=== PATIENT | male | born 1995 | race Caucasian/White ===

== ENCOUNTER 2017-06-13 11:04 | Inpatient (IN) ==
[2017-06-13 11:40] LABS: Basophils # 0.1 K/mcL (0.0-0.2); Basophils % 0.7 %; Eosinophils # 0.2 K/mcL (0.0-0.6); Eosinophils % 3.5 %; Hematocrit 47.6 % (37.5-50.1); Hemoglobin 15.5 g/dL (12.9-16.9); Immature Granulocytes % 0.4 % (0-4); Lymphocytes # 2.2 K/mcL (0.6-4.6); Lymphocytes % 31.5 %; Mean Corpuscular HGB Conc 32.6 g/dL (31.6-35.5); Mean Corpuscular Hemoglobin 26.7 pg (28.0-33.3); Mean Corpuscular Volume 81.9 fL (83.0-100.0); Mean Platelet Volume 10.4 fL (9.4-12.4); Monocytes # 0.5 K/mcL (0.0-1.3); Monocytes % 6.9 %; Neutrophils # 3.9 K/mcL (1.6-8.9); Platelet Count 235 K/mcL (140-400); Red Blood Count 5.81 M/mcL (4.19-5.50)
[2017-06-13 11:41] LABS: Bilirubin,Urine Negative (Negative); Blood,Urine Negative (Negative); Clarity,Urine Cloudy (Clear); Color,Urine Yellow (Yellow); Glucose,Urine (UA) Normal (Normal); Ketones,Urine Negative (Negative); Leukocyte Esterase,Urine Moderate (Negative); Nitrite,Urine Negative (Negative); PH,Urine 6.5 pH Units (5.0-8.0); Protein,Urine 30 mg/dL (Neg-Trace); Specific Gravity,Urine > 1.030 (1.010-1.025); Urobilinogen,Urine Normal (Normal)
[2017-06-13 11:42] LABS: Bacteria,Urine None Seen per hpf (None-Few); Hyaline Casts,Urine Moderate per lpf (None-Few); Squamous Epithelial Cell,Urine Few per lpf (None-Few); WBC,Urine TNTC per hpf (0-3)
[2017-06-13 11:47] LABS: Amphetamine Screen,Urine Negative ng/mL (Cutoff=1000); Barbiturate Screen,Urine Negative ng/mL (Cutoff=200); Benzodiazepines Screen,Urine Negative ng/mL (Cutoff=200); Cannabinoid Screen,Urine Negative ng/mL (Cutoff = 50); Cocaine Screen,Urine Negative ng/mL (Cutoff= 300); Opiate Screen,Urine Negative ng/mL (Cutoff=300); Phencyclidine Screen,Urine Negative ng/mL (Cutoff=25)
[2017-06-13 11:49] LABS: Mucus,Urine Moderate (Few)
[2017-06-13 11:55] LABS: Alanine Aminotransferase 11 Units/L (0-55); Alkaline Phosphatase 81 Units/L (38-126); Aspartate Amino Transferase 14 Units/L (5-34); BUN/Creatinine Ratio 12 (6-26); Bilirubin,Direct 0.3 mg/dL (0.0-0.5); Bilirubin,Indirect 0.4 mg/dL (0.0-1.2); Bilirubin,Total 0.7 mg/dL (0.2-1.2); Blood Urea Nitrogen 10 mg/dL (8-26); Calcium 9.4 mg/dL (8.6-10.8); Carbon Dioxide 29 mEq/L (19-29); Chloride 105 mEq/L (98-109); Glucose 95 mg/dL (70-99); Osmolality,Calculated 291 (280-300); Potassium 3.6 mEq/L (3.5-4.5); Sodium 141 mEq/L (136-145); eGFR For African Americans > 60; eGFR For Non-African Americans > 60
[2017-06-13 11:57] LABS: Acetaminophen < 1.0 mcg/mL (10-30); Ethanol < 10 mg/dL (0-10); Salicylate < 5.0 mg/dL (15-30)
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
[2017-06-13 12:16] LABS: Thyroid Stimulating Hormone 3.301 mcIU/mL (0.350-4.840)
[2017-06-13] MEDS ORDERED: Mag Hydrox/Al Hydrox/Simeth 30 ML UDC PO PRN (14:59)
[2017-06-13] MEDS ORDERED: MOM Conc 10 ML UD.LIQ PO PRN (14:59)
[2017-06-13] MEDS ORDERED: Ibuprofen 400 MG TABLET PO PRN (14:59)
[2017-06-13] MEDS ORDERED: *HR* LORazepam 2 MG/ML VIAL IM PRN (14:59)
[2017-06-13] MEDS ORDERED: hydrOXYzine pamoate 25 MG CAPSULE PO PRN (14:59)
[2017-06-13] MEDS ORDERED: *HR* LORazepam 1 MG TABLET PO PRN (14:59)
[2017-06-13] MEDS ORDERED: Haloperidol Lactate 5 MG/ML VIAL IM PRN (16:15)
[2017-06-13] MEDS: cephALEXin 500 MG CAPSULE PO SCH (20:55)
[2017-06-13] MEDS: traZODone 50 MG TABLET PO PRN (20:55)
[2017-06-14] MEDS: cephALEXin 500 MG CAPSULE PO SCH ×2 (09:55→21:03)
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
[2017-06-14] MEDS: Topiramate 25 MG TABLET PO SCH (21:02)
[2017-06-14] MEDS: traZODone 50 MG TABLET PO PRN (21:03)
[2017-06-15] MEDS: Topiramate 25 MG TABLET PO SCH ×2 (08:36→23:22)
[2017-06-15] MEDS: cephALEXin 500 MG CAPSULE PO SCH ×2 (08:36→23:21)
--- NOTE | 2017-06-15 12:12 | Psychiatry Progress Note ---
Date of Encounter: 06/15/17 Time of Encounter: 11:45 Subjective Interval history: The patient was seen in his room. Initially he was sleeping. He gradually woke up and began to talk about his symptoms. He does not know his medications were previous trials. He knows that he is on topiramate 50 mg twice a day. He did not report any significant side effects such as word finding difficulty or memory problems. He reports that he sleeps through most of the day. The patient has been able to identify Prozac to Zoloft and other medicines. When asked about specific request he said that he would prefer to take 2 medicines an antidepressant and a medicine for bipolar mood swings. He says that it would be bad if he went off on his mother. The patient reports no recent seizures but identifies stressors as causing seizures. He has seizure precautions with pillows up on his bed. He notes in the past these had 3 EEGs. His difficulty in recalling his treatment has been with the fact that much of the treatment recommendations were discussed with his parents when he was an adolescent. The records from [facility] for psychiatry were reviewed Review of Systems Constitutional: Denies: fever, chills, weakness, weight change Eyes: Denies: eye pain, vision change Ears, Nose, Throat: Denies: ear pain, throat pain, dental pain, hearing loss, congestion Cardiovascular: Denies: chest pain, palpitations, dyspnea on exertion Respiratory: Denies: cough, dyspnea, wheezes Gastrointestinal: Denies: abdominal pain, nausea, vomiting, diarrhea, constipation Neurological: Reports: confusion (after seizures). Denies: headache, weakness, numbness, memory loss Psychiatric: Reports: depression, abnormal sleep pattern, suicidal ideation, auditory hallucinations Objective: Exam Patient orientation: Yes Person, Yes Time, Yes Place, Yes Circumstance Level of alertness: Sedated Patient appearance: Appropriate Behavior: calm, guarded Psychomotor activity: Normal Eye contact: Minimal Contact Mood description: Depressed Affect description: constricted Speech pattern: Normal rhythm Speech volume: Soft/Quiet Thought process: Intact Thought content: Yes Intact Perceptual disturbances: Yes Auditory hallucinations (lthough he has reported halucinations since age 9 , he does not appear to attending to stimuli) Judgment: Limited Insight: Minimal Results - Vital Signs Vital Signs: Temp Pulse Resp BP Pulse Ox 97.9 F 80 16 98/55 96 06/15/17 08:32 06/15/17 08:32 06/15/17 08:32 06/15/17 08:32 06/13/17 14:14 - Drug Levels and Toxicology Drug Levels and Toxicology: dreug screen was negative Assessment and Plan (1) Bipolar disorder, current episode mixed, severe, without psychotic features Current visit: Yes Status: Acute Plan: Suicide Precautions per unit protocol, Encourage participation in unit milieu, Group Therapy Additional Plan: At this point I will look for a second generation antipsychotic that might be well tolerated to help with mood symptoms Risks, benefits, side effects, alternatives discussed w/pt: Yes Patient agreeable to treatment: Yes (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 Current visit: Yes Status: Acute Plan: Other Additional Plan: The patient will have seizure precautions while on the unit. Topiramate is been started 50 mg twice a day. The patient may benefit from an SSRI he has tolerated sertraline in the past we will use a lower dose even though this may lower seizure threshold. The possibility of generalized epilepsy exists but the patient has PNES Risks, benefits, side effects, alternatives discussed w/pt: Yes Patient agreeable to treatment: Yes (3) Borderline personality disorder Current visit: Yes Status: Acute Plan: Secure weapons, Family/Supportive other meeting Additional Plan: The patient had some efforts to scratch his wrist we will limit his access to utensils I am potential weapons. Ongoing psychotherapy is going to be important in the maintenance. A family meeting can be scheduled Risks, benefits, side effects, alternatives discussed w/pt: Yes Patient agreeable to treatment: Yes (4) Patient's noncompliance with other medical treatment and regimen Current visit: Yes Status: Acute Risks, benefits, side effects, alternatives discussed w/pt: Yes Patient agreeable to treatment: Yes Consult Discharge Plan - Plan Referrals: [facility] [Outside] - 06/22/17 11:00 am (The above appointment is with Feli العراقي for outpatient mental health counseling services. You will also see Dr. Addison for outpatient psychiatric assessment and medication management services on 06/23/2017 at 6:30 PM. The above appointments reflect first availability. You may contact the office regularly to check for cancellations that may allow you to be seen sooner.)
[2017-06-15] MEDS: Perphenazine 2 MG TABLET PO SCH (23:23)
[2017-06-16] MEDS: Topiramate 25 MG TABLET PO SCH ×2 (12:42→20:44)
[2017-06-16] MEDS: cephALEXin 500 MG CAPSULE PO SCH ×2 (12:42→20:44)
[2017-06-16] MEDS: Perphenazine 2 MG TABLET PO SCH ×3 (12:43→20:44)
--- NOTE | 2017-06-16 13:39 | Psychiatry Progress Note ---
Date of Encounter: 06/16/17 Time of Encounter: 13:35 Subjective Interval history: Patient has no income. His aunt lives on SSDI. He was thinking that his aunt Jazz[employer] could have power of contract attorney. He would like to be discharged sometime soon He is able to talk about the events of last night. This included going into restratints. he feels the medication is helpful. He was able to discuss PNES, or pseudoseizures. This is the reason for Topirmate zoloft, and psychotherapy Review of Systems Psychiatric: Reports: depression, abnormal sleep pattern, suicidal ideation, auditory hallucinations Objective: Exam Patient orientation: Yes Person, Yes Time, Yes Place, Yes Circumstance Level of alertness: Alert Patient appearance: Unkempt Behavior: nervous Psychomotor activity: Increased Eye contact: Maintains Eye Contact Mood description: Labile Affect description: inappropriate to situation Speech pattern: Normal rate, Normal rhythm Speech volume: Normal Thought process: Logical Thought content: Yes Suicidal ideation Judgment: Fair Insight: Partial Results - Vital Signs Vital Signs: Temp Pulse Resp BP Pulse Ox 98.2 F 94 16 116/81 96 06/16/17 09:00 06/16/17 09:00 06/16/17 09:00 06/16/17 09:00 06/13/17 14:14 Assessment and Plan (1) Bipolar disorder, current episode mixed, severe, without psychotic features Current visit: Yes Status: Acute Plan: Continue hospitalization, Suicide Precautions per unit protocol, Encourage participation in unit milieu, Monitor sleep, Monitor appetite Additional Plan: coping skills discussed Risks, benefits, side effects, alternatives discussed w/pt: Yes Patient agreeable to treatment: Yes (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 Current visit: Yes Status: Acute Plan: Continue hospitalization, Suicide Precautions per unit protocol Additional Plan: educaiton on PNES Risks, benefits, side effects, alternatives discussed w/pt: Yes Patient agreeable to treatment: Yes (3) Borderline personality disorder Current visit: Yes Status: Acute Plan: Group Therapy Risks, benefits, side effects, alternatives discussed w/pt : Yes Patient agreeable to treatment: Yes (4) Patient's noncompliance with other medical treatment and regimen Current visit: Yes Status: Acute Plan: Continue hospitalization, Close observation Risks, benefits, side effects, alternatives discussed w/pt: Yes Patient agreeable to treatment: Yes Consult Discharge Plan - Plan Referrals: [facility] [Outside] - 06/22/17 11:00 am (The above appointment is with Feli العراقي for outpatient mental health counseling services. You will also see Dr. Addison for outpatient psychiatric assessment and medication management services on 06/23/2017 at 6:30 PM. The above appointments reflect first availability. You may contact the office regularly to check for cancellations that may allow you to be seen sooner.)
[2017-06-17] MEDS: Topiramate 25 MG TABLET PO SCH (09:04)
[2017-06-17] MEDS: cephALEXin 500 MG CAPSULE PO SCH (09:04)
[2017-06-17] MEDS: Perphenazine 2 MG TABLET PO SCH (09:04)
--- NOTE | 2017-06-17 10:39 | Discharge Summary ---
Date of Encounter: 06/17/17 Time of Encounter: 10:39 Diagnosis - Discharge Diagnosis (1) Bipolar disorder, current episode mixed, severe, without psychotic features Priority: Primary Status: Acute (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 Status: Acute (3) Borderline personality disorder Status: Acute (4) Patient's noncompliance with other medical treatment and regimen Status: Acute (5) UTI (urinary tract infection) Status: Acute Comments: he will need to complete course of antibiotics Qualifiers: Urinary tract infection type: acute cystitis Hematuria presence: without hematuria Qualified Code(s): N30.00 - Acute cystitis without hematuria Medications - Discharge Medications Prescriptions: cephALEXin [Keflex] 500 mg PO BID 5 Days #10 capsule Perphenazine [Trilafon] 4 mg PO BID 60 Days #30 tablet Sertraline [Zoloft] 50 mg PO DAILY 30 Days #30 tablet Topiramate [Topamax] 50 mg PO BID 30 Days #60 tablet Perphenazine [Trilafon] 4 mg PO BID 60 Days #30 tablet 06/17/17 [Rx] Sertraline [Zoloft] 50 mg PO DAILY 30 Days #30 tablet 06/17/17 [Rx] Topiramate [Topamax] 50 mg PO BID 30 Days #60 tablet 06/17/17 [Rx] cephALEXin [Keflex] 500 mg PO BID 5 Days #10 capsule 06/17/17 [Rx] 3 Allergy/AdvReac Type Severity Reaction Status Date / Time Bee Pollen Allergy Hives Verified 04/30/17 21:56 Results Procedures and tests throughout hospitalization: Completed Microbiology Orders Category Date Time Status Culture,Urine [RM] Routine Lab 06/13/17 15:55 Completed Provider Date of admission: 06/13/17 14:40 Primary care physician: PCP NONE Discharging clinician: Je Hurst Assessment and Plan - Patient/Caregiver Discharge Instructions Activity: resume usual activities as tolerated Diet: regular diet - Follow up Plan Follow up with: Silvio Salazar [facility] [Outside] - 06/22/17 11:00 am (The above appointment is with Feli العراقي for outpatient mental health counseling services. You will also see Dr. Addison for outpatient psychiatric assessment and medication management services on 06/23/2017 at 6:30 PM. The above appointments reflect first availability. You may contact the office regularly to check for cancellations that may allow you to be seen sooner.) Functional capacity at discharge: independent ambulation Overall status at discharge: patient is back to baseline Disposition: Home, Self-Care Hospital Course Hospital course: Mr. Sunshine is a 21 year old male Patient was admitted from the ER. The patient has presented several ideation. He is followed by [facility] mental clinic where he receives counseling. He was unable to provide a complete history and has been noncompliant with treatment. The hospital records from [facility] psychiatry were reviewed. 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 He had been on topiramate 50 mg twice a day for possible seizures. He has no neurology follow- up locally. Given the risk of possible seizures he was placed on sertraline 50 mg every morning which he previously tolerated and perphenazine 2 mg twice a day was added because the patient exhibited features of borderline personality. This included suicidal ideation and suicide attempts mood lability and interpersonal difficulties. He required restraints and when necessary medications during hospital stay. However prior to discharge the patient displayed a period of relative mood stability freedom from suicidal ideation and no attempts or gestures. The patient had requested to be transferred to [facility] for psychiatry but they would not accept lateral transfers as a general policies. But the patient felt that he could continue as an outpatient and requested discharge. The patient's aunt is his next of kin and she was contacted regarding the hospitalization and discharge planning. The patient tolerated the medications without significant side effects there is no evidence of EPS. New the patient had a urinary tract infection he did not complain of dysuria. He was treated with Keflex and his course of antibiotics will continue on an outpatient basis. The patient's noncompliance with regimen is of concern. He is stopped antidepressants antipsychotics and other medicines as they are "not helping him ". The patient was educated on the need for continuing medicines on the diagnoses listed and the need for outpatient therapy and counseling in addition to medication management. - Time Spent with Patient Total time spent providing and/or coordinating discharge services: Less than 30 minutes Quality - Multiple Antipsychotics Patient discharged on 2 or more antipsychotic medications: No Procedures - Procedures Procedures: Medication Management, Crisis Stabilization, Supportive Therapy, Group Therapy, Psychoeducational Therapy Mental Status Exam - Mental Status Exam Patient orientation: Yes Person, Yes Time, Yes Place Level of alertness: Alert Patient appearance: Appropriate, Well Groomed Behavior: calm, cooperative Psychomotor activity: Normal Eye contact: Maintains Eye Contact Mood description: Euthymic/stable Affect description: congruent with mood, full range Speech pattern: Normal rate, Normal rhythm, Normal tone Speech Volume: Normal Thought process: Linear, Goal Oriented Thought Content: No Suicidal ideation, No Homicidal ideation, No Overt delusions Perceptual Disturbances: No Auditory hallucinations, No Visual hallucinations Judgment: Fair Insight: Partial
[2017-06-17 11:19] VITALS: BP 100/58
== END 2017-06-17 13:20 | disposition home or self-care (01) | DRG 753 ==
LOC: EMEROO 11:04 → 1ANU 14:40
PROVIDERS: ADMIT Psychiatry & Neurology Forensic Psychiatry; ATTEND Psychiatry & Neurology Forensic Psychiatry

== ENCOUNTER 2017-08-28 20:56 | Inpatient (IN) ==
[2017-08-28 21:32] LABS: Basophils # 0.1 K/mcL (0.0-0.2); Basophils % 0.5 %; Eosinophils # 0.3 K/mcL (0.0-0.6); Eosinophils % 2.9 %; Hematocrit 47.7 % (37.5-50.1); Hemoglobin 15.8 g/dL (12.9-16.9); Immature Granulocytes % 0.4 % (0-4); Lymphocytes % 37.6 %; Mean Corpuscular HGB Conc 33.1 g/dL (31.6-35.5); Mean Corpuscular Hemoglobin 27.3 pg (28.0-33.3); Mean Corpuscular Volume 82.5 fL (83.0-100.0); Mean Platelet Volume 10.3 fL (9.4-12.4); Monocytes # 0.9 K/mcL (0.0-1.3); Monocytes % 8.7 %; Neutrophils # 5.3 K/mcL (1.6-8.9); Platelet Count 261 K/mcL (140-400); Red Blood Count 5.78 M/mcL (4.19-5.50); Red Cell Distribution Width 13.1 % (11.5-14.5); Segmented Neutrophils % 49.9 %
[2017-08-28 21:37] LABS: Bilirubin,Urine Negative (Negative); Blood,Urine Negative (Negative); Clarity,Urine Clear (Clear); Color,Urine Yellow (Yellow); Glucose,Urine (UA) Normal (Normal); Ketones,Urine Negative (Negative); Leukocyte Esterase,Urine Negative (Negative); Nitrite,Urine Negative (Negative); Protein,Urine Negative (Neg-Trace); Specific Gravity,Urine 1.026 (1.010-1.025); Urobilinogen,Urine Normal (Normal)
[2017-08-28 21:42] LABS: Amphetamine Screen,Urine Negative ng/mL (Cutoff=1000); Barbiturate Screen,Urine Negative ng/mL (Cutoff=200); Benzodiazepines Screen,Urine Negative ng/mL (Cutoff=200); Cannabinoid Screen,Urine Negative ng/mL (Cutoff = 50); Cocaine Screen,Urine Negative ng/mL (Cutoff= 300); Opiate Screen,Urine Negative ng/mL (Cutoff=300); Phencyclidine Screen,Urine Negative ng/mL (Cutoff=25)
[2017-08-28 21:48] LABS: Acetaminophen < 1.0 mcg/mL (10-30); BUN/Creatinine Ratio 17 (6-26); Blood Urea Nitrogen 13 mg/dL (6-20); Calcium 9.9 mg/dL (8.6-10.3); Carbon Dioxide 28 mEq/L (23-29); Chloride 99 mEq/L (98-107); Ethanol < 10 mg/dL (0-10); Glucose 90 mg/dL (70-105); Osmolality,Calculated 288 (280-300); Potassium 3.7 mEq/L (3.5-5.1); Salicylate < 5.0 mg/dL (15.0-30.0); Sodium 139 mEq/L (136-145); eGFR For African Americans > 60; eGFR For Non-African Americans > 60
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
[2017-08-28] MEDS ORDERED: Acetaminophen 325 MG TABLET PO ONE (22:37)
[2017-08-29] MEDS ORDERED: Haloperidol Lactate 5 MG/ML VIAL IM PRN (01:11)
[2017-08-29] MEDS ORDERED: MOM Conc 10 ML UD.LIQ PO PRN (01:11)
[2017-08-29] MEDS ORDERED: *HR* LORazepam 2 MG/ML VIAL IM PRN (01:11)
[2017-08-29] MEDS ORDERED: *HR* LORazepam 1 MG TABLET PO PRN (01:11)
[2017-08-29] MEDS ORDERED: Mag Hydrox/Al Hydrox/Simeth 30 ML UDC PO PRN (01:11)
[2017-08-29] MEDS: Acetaminophen 325 MG TABLET PO PRN ×2 (09:40→16:17)
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
--- NOTE | 2017-08-30 11:03 | Psychiatry Progress Note ---
Date of Encounter: 08/30/17 Time of Encounter: 10:00 Subjective Interval history: Attempted to see Tutu twice today for follow-up. Initially he did not want to get out of bed. During the second interview patient admits to continued depression and suicidal ideations. He states "I am still trying to come up with a plan." He is manipulative with staff but redirectable. Staff is encouraging patient to make more positive goals for himself. He does want to know about his length of stay and seems focused on this. He reports his plan at discharge is to return to boyfriend's house. Patient has reported to staff that he is "seeing shadows." However he does not appear to be responding to internal stimuli. Her sleep assessment patient slept over 6 hours last night. Patient reports he still has trouble initiating sleep. Review of Systems Constitutional: Denies: fever, chills, weakness, weight change Eyes: Denies: eye pain, vision change Ears, Nose, Throat: Denies: ear pain, throat pain, dental pain, hearing loss, congestion Cardiovascular: Denies: chest pain, palpitations, dyspnea on exertion Respiratory: Denies: cough, dyspnea, wheezes Gastrointestinal: Denies: abdominal pain, nausea, vomiting, diarrhea, constipation Musculoskeletal: Denies: joint swelling, joint pain Neurological: Denies: headache, weakness, numbness, memory loss Psychiatric: Reports: depression, anxiety, abnormal sleep pattern, suicidal ideation, visual hallucinations, difficulty concentrating, hopelessness, mood swings Objective: Exam Patient orientation: Yes Person, Yes Time, Yes Place Level of alertness: Alert Patient appearance: Unkempt Behavior: dramatic Psychomotor activity: Normal Eye contact: Minimal Contact Mood description: Depressed Affect description: full range, incongruent with mood Speech pattern: Normal rate, Normal rhythm, Normal tone Speech volume: Normal Thought process: Logical, Goal Oriented Thought content: Yes Suicidal ideation, No Homicidal ideation Perceptual disturbances: No Reacting to internal stimuli, Yes Visual hallucinations Judgment: Limited Insight: Minimal Results - Vital Signs Vital Signs: Temp Pulse Resp BP Pulse Ox 99 F 88 16 142/73 100 08/29/17 19:20 08/29/17 19:20 08/29/17 19:20 08/29/17 19:20 08/28/17 21:02 Assessment and Plan (1) Bipolar disorder Current visit: Yes Status: Acute Plan: Continue hospitalization, Close observation, Suicide Precautions per unit protocol, Encourage participation in unit milieu, Group Therapy, Monitor sleep, Monitor appetite Additional Plan: Continue to monitor sleep. We will avoid increasing sleep meds further at this time. Continue to monitor side effects of meds. Consider increasing Zoloft for improvement in anxiety and depression symptoms. Risks, benefits, side effects, alternatives discussed w/pt: Yes Patient agreeable to treatment: Yes Qualifiers: Active/Remission status: currently active Current bipolar episode type: depressed Current episode severity: severe Psychotic features: with psychotic features Qualified Code(s): F31.5 - Bipolar disorder, current episode depressed, severe, with psychotic features (2) PTSD (post-traumatic stress disorder) Current visit: Yes Status: Acute Plan: Continue hospitalization, Close observation, Suicide Precautions per unit protocol, Encourage participation in unit milieu, Group Therapy, Monitor sleep, Monitor appetite Additional Plan: Encourage group attendance. Increase Zoloft. Risks, benefits, side effects, alternatives discussed w/pt: Yes Patient agreeable to treatment: Yes (3) Borderline personality disorder Current visit: No Status: Acute Plan: Continue hospitalization, Close observation, Suicide Precautions per unit protocol, Encourage participation in unit milieu, Group Therapy, Monitor sleep, Monitor appetite Additional Plan: Encouraged positive coping strategies and goal setting. Risks, benefits, side effects, alternatives discussed w/pt: Yes Patient agreeable to treatment: Yes Consult Discharge Plan - Plan Referrals: Silvio Salazar [facility] [Outside] - 09/08/17 2:00 pm (The above appointment is with Feli العراقي for outpatient mental health counseling and case management services. You will also see Dr. Leiva on 09/22/2017 at 7:00 PM for outpatient psychiatric assessment and medication management services.)
[2017-08-30] MEDS: hydrOXYzine pamoate 25 MG CAPSULE PO PRN (21:30)
[2017-08-30] MEDS: Acetaminophen 325 MG TABLET PO PRN (21:46)
[2017-08-31] MEDS: Acetaminophen 325 MG TABLET PO PRN (10:02)
[2017-08-31] MEDS: hydrOXYzine pamoate 25 MG CAPSULE PO PRN (13:30)
--- NOTE | 2017-08-31 14:04 | Psychiatry Progress Note ---
Date of Encounter: 08/31/17 Time of Encounter: 09:50 Subjective Interval history: Patient seen today for follow-up. He states he is still depressed and still having suicidal thoughts but does not have a plan right now. Patient reports he is not sleeping that well even though he is observed sleeping 5-6 hours per night. He reports some nightmares and feels that his sleep is not restful. He reports some mood swings and irritability. He plans to return to his boyfriend' s house on discharge. Patient then requested a place back on medication for seizures that was started at the [facility]. He later admits to staff that he has even been taking this medication regularly. Encouraged patient to work on coping strategies and participate in group activities. Patient has been more focused on certain members of the staff. Per staff report patient is trying to split staff and somewhat manipulating situations to his benefit. Review of Systems Psychiatric: Reports: depression, anxiety, abnormal sleep pattern, suicidal ideation, difficulty concentrating, hopelessness, mood swings. Denies: visual hallucinations Objective: Exam Patient orientation: Yes Person, Yes Time, Yes Place Level of alertness: Alert Patient appearance: Appropriate Behavior: dramatic Psychomotor activity: Normal Eye contact: Minimal Contact Mood description: Depressed Affect description: full range, incongruent with mood Speech pattern: Normal rate, Normal rhythm, Normal tone Speech volume: Normal Thought process: Intact, Logical, Goal Oriented Thought content: Yes Suicidal ideation Perceptual disturbances: No Auditory hallucinations, No Visual hallucinations Judgment: Limited Insight: Minimal Results - Vital Signs Vital Signs: Temp Pulse Resp BP Pulse Ox 97.8 F 91 18 96/59 100 08/31/17 09:00 08/31/17 09:00 08/31/17 09:00 08/31/17 09:00 08/28/17 21:02 Assessment and Plan (1) Bipolar disorder Current visit: Yes Status: Acute Plan: Continue hospitalization, Close observation, Suicide Precautions per unit protocol, Encourage participation in unit milieu, Group Therapy, Monitor sleep, Monitor appetite Additional Plan: We will increase Seroquel and Zoloft slightly. Continue to encourage patient to have appropriate boundaries with peers and staff and use appropriate and direct communication skills to get his needs met. Encourage group attendance. Risks, benefits, side effects, alternatives discussed w/pt: Yes Patient agreeable to treatment: Yes Qualifiers: Active/Remission status: currently active Current bipolar episode type: depressed Current episode severity: severe Psychotic features: with psychotic features Qualified Code(s): F31.5 - Bipolar disorder, current episode depressed, severe, with psychotic features (2) PTSD (post-traumatic stress disorder) Current visit: Yes Status: Acute Risks, benefits, side effects, alternatives discussed w/pt: Yes Patient agreeable to treatment: Yes (3) Borderline personality disorder Current visit: No Status: Acute Plan: Continue hospitalization, Close observation, Suicide Precautions per unit protocol, Encourage participation in unit milieu, Group Therapy, Monitor sleep, Monitor appetite Additional Plan: Monitor behavior closely. Encourage group and unit activity attendance. Encourage outpatient compliance with medications and treatment. Risks, benefits, side effects, alternatives discussed w/pt: Yes Patient agreeable to treatment: Yes Consult Discharge Plan - Plan [facility] pm (The above appointment is with Feli العراقي for outpatient mental health counseling and case management services. You will also see Dr. Leiva on 09/22/2017 at 7:00 PM for outpatient psychiatric assessment and medication management services.)
--- NOTE | 2017-09-01 10:02 | Psychiatry Progress Note ---
Date of Encounter: 09/01/17 Time of Encounter: 09:10 Subjective Interval history: Tutu is seen today for follow-up. He reports that he slept a little bit better last night. He was actually still in bed prior to the interview and did not want to get out of bed to come talk to this provider. He was eventually encouraged to get out of bed to discuss his mood. He states that he has been asleep this morning that yesterday he was still having intermittent suicidal ideation. Per staff, patient is reportedly trying to "come up with a plan on how to hurt himself here. Encouraged patient to try to make positive future goals. Encourage patient to attend and participate in group activities here on the unit. He denies auditory hallucinations today. We will begin to discuss discharge planning and appropriate placement upon discharge. Review of Systems Psychiatric: Reports: depression, anxiety, abnormal sleep pattern, suicidal ideation, difficulty concentrating, hopelessness, mood swings. Denies: auditory hallucinations, visual hallucinations Objective: Exam Patient orientation: Yes Person, Yes Time, Yes Place Level of alertness: Alert Patient appearance: Unkempt Behavior: dramatic Psychomotor activity: Normal Eye contact: Fleeting Contact Mood description: Depressed Affect description: full range, euthymic, incongruent with mood Speech pattern: Normal rate, Normal rhythm, Normal tone Speech volume: Normal Thought process: Intact, Logical, Goal Oriented Thought content: Yes Suicidal ideation, No Homicidal ideation Perceptual disturbances: No Auditory hallucinations, No Visual hallucinations Judgment: Limited Insight: Minimal Results - Vital Signs Vital Signs: Temp Pulse Resp BP Pulse Ox 98 F 99 16 95/68 100 09/01/17 09:00 09/01/17 09:00 09/01/17 09:00 09/01/17 09:00 08/28/17 21:02 Assessment and Plan (1) Bipolar disorder Current visit: Yes Status: Acute Plan: Continue hospitalization, Close observation, Suicide Precautions per unit protocol, Encourage participation in unit milieu, Group Therapy, Monitor sleep, Monitor appetite Additional Plan: Continue current medications. Increases were made yesterday and patient does appear to be sleeping better. Risks, benefits, side effects, alternatives discussed w/pt: Yes Patient agreeable to treatment: Yes Qualifiers: Active/Remission status: currently active Current bipolar episode type: depressed Current episode severity: severe Psychotic features: with psychotic features Qualified Code(s): F31.5 - Bipolar disorder, current episode depressed, severe, with psychotic features (2) PTSD (post-traumatic stress disorder) Current visit: Yes Status: Acute Risks, benefits, side effects, alternatives discussed w/pt: Yes Patient agreeable to treatment: Yes (3) Borderline personality disorder Current visit: No Status: Acute Risks, benefits, side effects, alternatives discussed w/pt: Yes Patient agreeable to treatment: Yes Consult Discharge Plan - Plan Referrals: [facility] [Outside] - 09/08/17 2:00 pm (The above appointment is with Feli العراقي for outpatient mental health counseling and case management services. You will also see Dr. Leiva on 09/22/2017 at 7:00 PM for outpatient psychiatric assessment and medication management services.)
[2017-09-01] MEDS ORDERED: Nicotine 2 MG GUM BC PRN (21:31)
--- NOTE | 2017-09-02 10:08 | Psychiatry Progress Note ---
Date of Encounter: 09/02/17 Time of Encounter: 09:00 Subjective Interval history: Tutu is seen today for follow-up. He continues to endorse suicidal ideations. He is not sure what his plan will be. Patient is a little bit groggy this morning and is agreeable to try to decrease the Seroquel slightly. He denies auditory or visual hallucinations. He is starting to consider discharge in his discharge plan and is wondering about how much longer he will need to be admitted. We discussed that this is partially up to his mood symptoms and his suicidal thoughts. Patient verbalizes understanding. Encourage group attendance and discussed meaningful participation in groups. Review of Systems Psychiatric: Reports: depression, anxiety, suicidal ideation, difficulty concentrating, hopelessness, mood swings. Denies: abnormal sleep pattern, auditory hallucinations, visual hallucinations Objective: Exam Patient orientation: Yes Person, Yes Time, Yes Place Level of alertness: Alert Patient appearance: Unkempt Behavior: dramatic Psychomotor activity: Normal Eye contact: Maintains Eye Contact Mood description: Depressed Affect description: other (Sleepy) Speech pattern: Normal rate, Normal rhythm, Normal tone Speech volume: Normal Thought content: Yes Suicidal ideation Perceptual disturbances: No Reacting to internal stimuli, No Auditory hallucinations, No Visual hallucinations Judgment: Limited Insight: Minimal Results - Vital Signs Vital Signs: Temp Pulse Resp BP Pulse Ox 98.2 F 103 16 100/70 100 09/02/17 09:00 09/02/17 09:00 09/02/17 09:00 09/02/17 09:00 08/28/17 21:02 Assessment and Plan (1) Bipolar disorder Current visit: Yes Status: Acute Plan: Continue hospitalization, Close observation, Suicide Precautions per unit protocol, Encourage participation in unit milieu, Group Therapy, Monitor sleep, Monitor appetite Additional Plan: Decrease nighttime quetiapine dose. Encourage meaningful participation in groups. Risks, benefits, side effects, alternatives discussed w/pt: Yes Patient agreeable to treatment: Yes Qualifiers: Active/Remission status: currently active Current bipolar episode type: depressed Current episode severity: severe Psychotic features: with psychotic features Qualified Code(s): F31.5 - Bipolar disorder, current episode depressed, severe, with psychotic features (2) PTSD (post-traumatic stress disorder) Current visit: Yes Status: Acute Risks, benefits, side effects, alternatives discussed w/pt: Yes Patient agreeable to treatment: Yes (3) Borderline personality disorder Current visit: No Status: Acute Risks, benefits, side effects, alternatives discussed w/pt: Yes Patient agreeable to treatment: Yes Consult Discharge Plan - Plan Referrals: [facility] [Outside] - 09/08/17 2:00 pm (The above appointment is with Feli العراقي for outpatient mental health counseling and case management services. You will also see Dr. Leiva on 09/22/2017 at 7:00 PM for outpatient psychiatric assessment and medication management services.)
[2017-09-02] MEDS: Nicotine 21 MG PATCH.TD24 TD SCH (14:53)
[2017-09-02] MEDS: Acetaminophen 325 MG TABLET PO PRN (23:23)
[2017-09-02] MEDS: hydrOXYzine pamoate 25 MG CAPSULE PO PRN (23:24)
[2017-09-03] MEDS: Nicotine 21 MG PATCH.TD24 TD SCH (09:56)
--- NOTE | 2017-09-03 10:31 | Psychiatry Progress Note ---
Date of Encounter: 09/03/17 Time of Encounter: 10:15 Subjective Interval history: The patient notes that he had difficulty falling asleep and tossed and turned overnight. Meanwhile observation reveals that he has greater than 6.5 hours and was sleeping in the morning. The patient is a 21-year-old white male with bipolar disorder and his discharge plan is to go back and live with his boyfriend. He claimed Texts sent to his cell phone From his ex-boyfriend caused suicide ideation. He reported seeing green men last night and this appears to be mood incongruent. He is not sure whether they were his imagination present or not. Patient reports hearing voices telling him to harm himself but has not tried to resist them. The patient reports that he had seizures on an outpatient basis but none recent , or for this unit. The patient has family history of completed suicide. The patient reports suicidal ideation while on the unit however when pressed for a plan where he might kill himself on the unit she could not specify 1. He agreed that he could say no to command halucianitons. The patient has been participating in groups and plans to continue in groups. He reports that in the relationship with his boyfriend he has not discussed why exactly he came to Hospital. Review of Systems Psychiatric: Reports: depression, anxiety, abnormal sleep pattern, suicidal ideation, auditory hallucinations, visual hallucinations, difficulty concentrating, hopelessness, mood swings Objective: Exam Patient orientation: Yes Person, Yes Time, Yes Place Level of alertness: Sedated Patient appearance: Appropriate, Thin Behavior: guarded Psychomotor activity: Normal Eye contact: Minimal Contact Mood description: Depressed Affect description: congruent with mood Speech pattern: Normal rate Speech volume: Soft/Quiet Thought process: Linear, Goal Oriented Thought content: Yes Suicidal ideation Judgment: Limited Insight: Minimal (he does not appear to be attending to internal stimuli) Results - Vital Signs Vital Signs: Temp Pulse Resp BP Pulse Ox 98.4 F 99 16 95/62 100 09/03/17 09:00 09/03/17 09:00 09/03/17 09:00 09/03/17 09:00 08/28/17 21:02 - Drug Levels and Toxicology Drug Levels and Toxicology: Drug screen was negative Assessment and Plan (1) Bipolar disorder, current episode mixed, severe, without psychotic features Current visit: No Status: Acute Plan: Continue hospitalization, Close observation, Monitor sleep Risks, benefits, side effects, alternatives discussed w/pt: Yes Patient agreeable to treatment: Yes (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 Current visit: No Status: Acute Plan: Continue hospitalization, Close observation, Suicide Precautions per unit protocol (3) Borderline personality disorder Current visit: No Status: Acute Plan: Encourage participation in unit milieu, Group Therapy, Family/Supportive other meeting Risks, benefits, side effects, alternatives discussed w/pt: Yes Patient agreeable to treatment: Yes (4) Patient's noncompliance with other medical treatment and regimen Current visit: No Status: Acute Plan: Close observation, Monitor appetite Risks, benefits, side effects, alternatives discussed w/pt: Yes Patient agreeable to treatment: Yes Consult Discharge Plan - Plan Referrals: [facility] [Outside] - 09/08/17 2:00 pm (The above appointment is with Feli العراقي for outpatient mental health counseling and case management services. You will also see Dr. Leiva on 09/22/2017 at 7:00 PM for outpatient psychiatric assessment and medication management services.)
[2017-09-03] MEDS: Acetaminophen 325 MG TABLET PO PRN (21:04)
[2017-09-04] MEDS: Nicotine 21 MG PATCH.TD24 TD SCH (09:12)
--- NOTE | 2017-09-04 11:54 | Psychiatry Progress Note ---
Date of Encounter: 09/04/17 Time of Encounter: 11:45 Subjective Interval history: . The patient had presented to the nurses station within the past 24 hours with a plan to strangle himself with anything he could find on the unit. He made no attempt to kill himself but continued to voice suicidal ideation. Today he says he has not suicidal and not planning to strangle himself. The patient was also told that he may need to find a new place to live sometime after he returns home. The patient reports that he is the boyfriend was over visiting. When the boyfriend was talking to he did not seem to pay attention as well and the boyfriend thought that the patient was having a seizure. When asked about this the patient says that he did not lose control of bowel or bladder did not lose significant control of current consciousness but that he may have bit the left side of his tongue. The patient does have a piercing near that area as well. Patient is asked to go on the medicine Depakote. He says that his mother was on Depakote for grand mal seizures. The patient also has bipolar disorder diagnosed. In the past the patient was treated with topiramate for his seizure disorder but there may did not work to prevent seizures. This may be related to the fact that he has P SKINNY Patient was told to follow up with the neurologist but he was relocating and never did. The patient says that he has a problem with the left knee. He would like to have a knee brace from home to help him to stabilize the knee. I told him that I would relay his concerns with the staff. So I am not sure that he can wear a knee brace on the unit at this time. The patient does not have the cushions up for seizure disorder because he is not felt to have primary epilepsy Review of Systems Psychiatric: Reports: depression, anxiety, abnormal sleep pattern, suicidal ideation, auditory hallucinations, visual hallucinations, difficulty concentrating, hopelessness, mood swings Objective: Exam Patient orientation: Yes Person, Yes Time, Yes Place, Yes Circumstance Level of alertness: Alert Patient appearance: Appropriate, Thin Behavior: anxious, impulsive, talkative Psychomotor activity: Increased Eye contact: Maintains Eye Contact Mood description: Depressed, Anxious Affect description: labile, anxious Speech pattern: Normal rate, Normal rhythm Speech volume: Normal Thought process: Goal Oriented Thought content: Yes Suicidal ideation, Yes Somatic delusion Perceptual disturbances: Yes Auditory hallucinations, Yes Visual hallucinations Judgment: Limited Insight: Minimal (The patient said that he saw green men and that they waved to. 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 Current visit: No Status: Acute Plan: Continue hospitalization, Close observation, Encourage participation in unit milieu Risks, benefits, side effects, alternatives discussed w/pt: Yes Patient agreeable to treatment: Yes (3) Borderline personality disorder Current visit: No Status: Acute Plan: Continue hospitalization, Close observation, Encourage participation in unit milieu, Family/Supportive other meeting Risks, benefits, side effects, alternatives discussed w/pt: Yes Patient agreeable to treatment: Yes (4) Patient's noncompliance with other medical treatment and regimen Current visit: No Status: Acute Plan: Continue hospitalization, Close observation, Encourage participation in unit milieu Risks, benefits, side effects, alternatives discussed w/pt: Yes Patient agreeable to treatment: Yes Consult Discharge Plan - Plan Referrals: [facility] [Outside] - 09/08/17 2:00 pm (The above appointment is with Feil العراقي for outpatient mental health counseling and case management services. You will also see Dr. Leiva on 09/22/2017 at 7:00 PM for outpatient psychiatric assessment and medication management services.)
[2017-09-04] MEDS ORDERED: Divalproex (24 HR) 500 MG TABLET PO SCH (21:00)
[2017-09-05] MEDS: Nicotine 21 MG PATCH.TD24 TD SCH (09:24)
--- NOTE | 2017-09-05 12:58 | Psychiatry Progress Note ---
Date of Encounter: 09/05/17 Time of Encounter: 12:40 Subjective Interval history: Mr. Sunshine is 21 yr old WM seen today , case d/w treatment team and as per them patient has made remarks that he wanted to strangle himself. States i do not want to be around my aunt and family and i will make easy on them by killing my self. states he does not have any plans right now but he wants to kill himself. i am not sleeping well and i need some sleeping medication, depression is same , does not feel getting better, anxious and shaky . i am hearing things but i can not make them out. denies side effects. pt at present is suicidal , and depress with hallucinations. will Review of Systems Psychiatric: Reports: depression, anxiety, abnormal sleep pattern, suicidal ideation, auditory hallucinations, visual hallucinations, difficulty concentrating, hopelessness, mood swings Objective: Exam Patient orientation: Yes Person, Yes Time, Yes Place Level of alertness: Alert Patient appearance: Appropriate Behavior: cooperative, anxious Psychomotor activity: Normal Eye contact: Maintains Eye Contact Mood description: Depressed, Anxious Affect description: congruent with mood Speech pattern: Slowed Speech volume: Normal Thought process: Logical Thought content: Yes Suicidal ideation, Yes Preoccupation Perceptual disturbances: Yes Auditory hallucinations Judgment: Poor Insight: Minimal Results - Vital Signs Vital Signs: Temp Pulse Resp BP Pulse Ox 98.8 F 93 16 136/74 100 09/04/17 19:50 09/04/17 19:50 09/04/17 19:50 09/04/17 19:50 08/28/17 21:02 Assessment and Plan (1) Bipolar disorder Current visit: Yes Status: Acute Plan: Continue hospitalization, Close observation, Suicide Precautions per unit protocol, Encourage participation in unit milieu, Group Therapy, Monitor sleep, Monitor appetite Additional Plan: will increase depakote and zoloft , will monitor closely. Risks, benefits, side effects, alternatives discussed w/pt: Yes Patient agreeable to treatment: Yes Qualifiers: Active/Remission status: currently active Current bipolar episode type: depressed Current episode severity: severe Psychotic features: with psychotic features Qualified Code(s): F31.5 - Bipolar disorder, current episode depressed, severe, with psychotic features (2) Borderline personality disorder Current visit: No Status: Acute Plan: Continue hospitalization, Close observation, Suicide Precautions per unit protocol, Encourage participation in unit milieu, Group Therapy, Monitor sleep, Monitor appetite, Family/Supportive other meeting Risks, benefits, side effects, alternatives discussed w/pt: Yes Patient agreeable to treatment: Yes (3) PTSD (post-traumatic stress disorder) Current visit: Yes Status: Chronic Plan: Continue hospitalization, Close observation, Suicide Precautions per unit protocol, Encourage participation in unit milieu, Group Therapy, Monitor appetite, Family/Supportive other meeting Risks, benefits, side effects, alternatives discussed w/pt: Yes Patient agreeable to treatment: Yes Consult Discharge Plan - Plan Referrals: Silvio [facility] [Outside] - 09/08/17 2:00 pm (The above appointment is with Feli العراقي for outpatient mental health counseling and case management services. You will also see Dr. Leiva on 09/22/2017 at 7:00 PM for outpatient psychiatric assessment and medication management services.)
[2017-09-05] MEDS: Divalproex (12 HR) 500 MG TABLET PO SCH (21:27)
[2017-09-06] MEDS: Nicotine 21 MG PATCH.TD24 TD SCH (09:09)
--- NOTE | 2017-09-06 12:19 | Psychiatry Progress Note ---
Date of Encounter: 09/06/17 Time of Encounter: 12:00 Subjective Interval history: Patient seen today , case d/w staff and treatment team. he is stating i am feeling better and asking to be discharged today , as he is feeling better and not hallucinating and i asked him yesterday afternoon he was still depress and suicidal, states i used coping skills, states i am not suicidal. states my grand mothers is tomorrow and i want to go , he feels increase of medicine has helped him and feeling better. he is denying side effects. will get depakote level. Review of Systems Psychiatric: Reports: depression, anxiety, abnormal sleep pattern, suicidal ideation, auditory hallucinations, visual hallucinations, difficulty concentrating, hopelessness, mood swings Objective: Exam Patient orientation: Yes Person, Yes Time, Yes Place Level of alertness: Alert Patient appearance: Appropriate Behavior: calm, cooperative Psychomotor activity: Normal Eye contact: Maintains Eye Contact Mood description: Anxious Affect description: congruent with mood Speech pattern: Normal rate, Normal rhythm, Normal tone, Coherent Speech volume: Normal Thought process: Intact Thought content: Yes Intact, Yes Guilt Judgment: Fair Insight: Partial Results - Vital Signs Vital Signs: Temp Pulse Resp BP Pulse Ox 98 F 131 16 78/54 100 09/06/17 09:00 09/06/17 09:00 09/06/17 09:00 09/06/17 09:00 08/28/17 21:02 Assessment and Plan (1) Bipolar disorder Current visit: Yes Status: Acute Risks, benefits, side effects, alternatives discussed w/pt: Yes Patient agreeable to treatment: Yes Qualifiers: Active/Remission status: currently active Current bipolar episode type: depressed Current episode severity: severe Psychotic features: with psychotic features Qualified Code(s): F31.5 - Bipolar disorder, current episode depressed, severe, with psychotic features (2) Borderline personality disorder Current visit: No Status: Acute Risks, benefits, side effects, alternatives discussed w/pt: Yes Patient agreeable to treatment: Yes (3) PTSD (post-traumatic stress disorder) Current visit: Yes Status: Chronic Risks, benefits, side effects, alternatives discussed w/pt: Yes Patient agreeable to treatment: Yes Consult Discharge Plan - Plan Referrals: [facility] [Outside] - 09/08/17 2:00 pm (The above appointment is with Feli العراقي for outpatient mental health counseling and case management services. You will also see Dr. Leiva on 09/22/2017 at 7:00 PM for outpatient psychiatric assessment and medication management services.)
[2017-09-06] MEDS: Divalproex (12 HR) 500 MG TABLET PO SCH (20:55)
[2017-09-07] MEDS: Nicotine 21 MG PATCH.TD24 TD SCH (08:52)
[2017-09-07 08:57] VITALS: BP 104/70
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
== END 2017-09-07 11:50 | disposition home or self-care (01) | DRG 753 ==
LOC: EMEROO 20:56 → SUATTDRO 08-29 01:07 → 1ANU 08-29 01:07
PROVIDERS: ADMIT Psychiatry & Neurology Psychiatry; ATTEND Psychiatry & Neurology Psychiatry

== ENCOUNTER 2018-11-11 22:50 | Inpatient (IN) ==
--- NOTE | 2018-11-11 23:39 | Emergency Department Note ---
Disposition Clinical Impression: Suicidal ideation Suicidal behavior Qualifiers: Attempted self-injury: with attempted self-injury Qualified Code(s): T14.91XA - Suicide attempt, initial encounter Disposition: Admitted As Inpatient Psych HPI - General Chief Complaint: ED Psychiatric Symptoms Stated Complaint: 1A Eval Time Seen by Provider: 11/11/18 23:25 Source: patient Mode of arrival: ambulatory Limitations: no limitations Nursing Notes Reviewed: Yes Vital Signs Reviewed: Yes - History of Present Illness HPI Narrative: 22-year-old male with a history of for anxiety and depression, seizures, ADHD, bipolar presents with suicidal thought. Patient stated he ran out of antidepressant medication for a while. Patient felt depressed recently. He tried to kill himself by overdose. Patient took 5 tablets each of Depakote 500mg and Olanzapine 15 mg. Pt reported some dizziness. Pt complaint: suicidal ideation, feels depressed - Related Data Home Medications Medication Instructions Recorded Confirmed Benztropine [Cogentin] 1 mg PO HS 09/27/17 09/27/17 OLANZapine [Zyprexa] 15 mg PO HS 09/27/17 09/27/17 Previous Rx's Medication Instructions Recorded Divalproex (12 HR) [Depakote (12 1,000 mg PO HS #60 tablet.dr 09/07/17 HR)] Quetiapine Fumarate [Seroquel] 600 mg PO HS #60 tablet 09/07/17 Ondansetron ODT [Zofran ODT] 4 mg SL Q6HR PRN #7 tab.rapdis 01/11/18 Dicyclomine [Bentyl] 10 mg PO TID #12 capsule 09/30/18 Ondansetron ODT [Zofran ODT] 4 mg SL Q6HR #8 tab.rapdis 09/30/18 Allergies Allergy/AdvReac Type Severity Reaction Status Date / Time Bee Pollen Allergy Hives Verified 11/11/18 23:12 dairy Allergy Gastrointestinal Uncoded 11/11/18 23:12 Upset Constitutional: Denies: fever, chills Eyes: Denies: eye pain ENT ED: Denies: ear pain Cardiovascular: Denies: chest pain Respiratory: Denies: cough Gastrointestinal: Denies: abdominal pain Genitourinary: Denies: urgency Musculoskeletal: Denies: back pain Integumentary: Denies: rash Neurological: Denies: headache Psychiatric: Reports: depression, suicidal thoughts. Denies: anxiety Endocrine: Denies: fatigue Hematological/Lymphatic: Denies: easy bleeding Allergic/Immunologic: Denies: facial swelling Past Medical History - Past Medical History Medical history: Reports: seizures Surgical history: Reports: other Psychiatric history: Reports: depression, PTSD, prior suicide attempt, previous psychiatric hospitalization - Social History Smoking Status: Current every day smoker Smokeless Tobacco Status: Yes Alcohol use: Reports: none Drug use: Reports: none Physical Exam - General Limitations: no limitations General appearance: alert - Head Head exam: atraumatic - Eye Eye exam: Present: normal appearance - ENT ENT exam: normal exam - Neck Neck exam: Present: normal inspection - Chest Chest inspection: Present: normal inspection - Respiratory Respiratory exam: Present: normal lung sounds bilaterally - Cardiovascular Cardiovascular exam: Present: regular rate - Abdominal Exam Abdominal exam: Present: soft - Extremities Exam Extremities exam: Present: normal inspection, full ROM. Absent: tenderness - Back Exam Back exam: Present: normal inspection, full ROM. Absent: tenderness - Neurological Exam Neurological exam: Present: alert, oriented X3, CN II-XII intact, normal gait. Absent: motor sensory deficit - Psychiatric Psychiatric exam: Present: depressed, suicidal ideation - Skin Skin exam: Present: warm, intact Course Vital Signs Temperature 98.5 F 11/11/18 23:12 Pulse Rate 125 11/11/18 23:12 Respiratory Rate 16 11/11/18 23:12 Blood Pressure 115/74 11/11/18 23:12 O2 Sat by Pulse Oximetry 97 11/11/18 23:12 Temperature 98.5 F 11/11/18 23:12 Pulse Rate 125 11/11/18 23:12 Respiratory Rate 16 11/11/18 23:12 Blood Pressure 115/74 11/11/18 23:12 O2 Sat by Pulse Oximetry 97 11/11/18 23:12 Oxygen Delivery Oxygen Delivery Room Air Psych - MDM Narrative Medical decision making narrative: 22-year-old male presents for suicidal thought and behavior. Patient took 5 tablets each of Depakote and Olanzapine to kill himself. Pt reported some dizziness and sleepiness. Physical exam: alert and oriented, bilateral lungs are clear, no focal neurology deficit. Impression: depression, suicidal ideation. Labs ordered. Pending 1A evaluation. labs are unremarkable. 1A evaluation completed. Pt will be admitted to for further evaluation. Dr. Cintron has seen the patient and agrees the above plan. - Lab Data Result diagrams: 11/11/18 23:21 11/11/18 23:21 Lab Results 11/11/18 11/11/18 11/12/18 Range/Units 23:21 23:21 00:15 WBC 11.3 H (4.3-11.1) K/mcL RBC 5.98 H (4.19-5.50) M/mcL Hgb 16.2 (12.9-16.9) g/dL Hct 49.0 (37.5-50.1) % MCV 81.9 L (83.0-100.0) fL MCH 27.1 L (28.0-33.3) pg MCHC 33.1 (31.6-35.5) g/dL RDW 12.3 (11.5-14.5) % Plt Count 256 (140-400) K/mcL MPV 10.2 (9.4-12.4) fL Immature Gran % 0.4 (0-4) % Seg Neutrophils % 65.3 % Lymphocytes % 25.4 % Monocytes % 6.6 % Eosinophils % 1.9 % Basophils % 0.4 % Neutrophils # 7.4 (1.6-8.9) K/mcL Lymphocytes # 2.9 (0.6-4.6) K/mcL Monocytes # 0.8 (0.0-1.3) K/mcL Eosinophils # 0.2 (0.0-0.6) K/mcL Basophils # 0.1 (0.0-0.2) K/mcL Sodium 137 (136-145) mEq/L Potassium 4.2 (3.5-5.1) mEq/L Chloride 104 (98-107) mEq/L Carbon Dioxide 29 (23-29) mEq/L BUN 11 (6-20) mg/dL Creatinine 0.93 (0.70-1.30) mg/dL Est GFR ( Amer) > 60 (> 60) Est GFR (Non-Af Amer) > 60 (> 60) BUN/Creatinine Ratio 12 (6-26) Glucose 98 (70-105) mg/dL Calculated Osmolality 283 (280-300) Calcium 9.4 (8.6-10.3) mg/dL Urine Color Yellow (Yellow) Urine Clarity Turbid A (Clear) Urine pH 8.0 (5.0-8.0) pH Units Ur Specific [place] 1.017 (1.010-1.025) Urine Protein Negative (Neg-Trace) mg/dL Urine Glucose (UA) Normal (Normal) mg/dL Urine Ketones Negative (Negative) mg/dL Urine Blood Negative (Negative) Urine Nitrite Negative (Negative) Urine Bilirubin Negative (Negative) Urine Urobilinogen Normal (Normal) mg/dL Ur Leukocyte Esterase Negative (Negative) Urine Microscopic RBC 0-3 (0-3) per hpf Urine Microscopic WBC 0-3 (0-3) per hpf Ur Squamous Epith Cells Few (None-Few) per lpf Urine Bacteria None Seen (None-Few) per hpf Hyaline Casts None Seen (None-Few) per lpf Salicylates < 2.5 L (15.0-30.0) mg/dL Urine Opiates Screen (Yyuwte=091) ng/mL Acetaminophen < 10 L (10-20) mcg/mL Ur Barbiturates Screen (Pfnuam=583) ng/mL Ur Phencyclidine Scrn (Cutoff=25) ng/mL Ur Amphetamines Screen (Nbpdqo=6423) ng/mL U Benzodiazepines Scrn (Uwjcfq=548) ng/mL Urine Cocaine Screen (Cutoff= 300) ng/mL U Marijuana (THC) Screen (Cutoff = 50) ng/mL Ur Drug Screen Interp Ethyl Alcohol < 10 (Less than 10) mg/dL 11/12/18 Range/Units 00:15 WBC (4.3-11.1) K/mcL RBC (4.19-5.50) M/mcL Hgb (12.9-16.9) g/dL Hct (37.5-50.1) % MCV (83.0-100.0) fL MCH (28.0-33.3) pg MCHC (31.6-35.5) g/dL RDW (11.5-14.5) % Plt Count (140-400) K/mcL MPV (9.4-12.4) fL Immature Gran % (0-4) % Seg Neutrophils % % Lymphocytes % % Monocytes % % Eosinophils % % Basophils % % Neutrophils # (1.6-8.9) K/mcL Lymphocytes # (0.6-4.6) K/mcL Monocytes # (0.0-1.3) K/mcL Eosinophils # (0.0-0.6) K/mcL Basophils # (0.0-0.2) K/mcL Sodium (136-145) mEq/L Potassium (3.5-5.1) mEq/L Chloride (98-107) mEq/L Carbon Dioxide (23-29) mEq/L BUN (6-20) mg/dL Creatinine (0.70-1.30) mg/dL Est GFR ( Amer) (> 60) Est GFR (Non-Af Amer) (> 60) BUN/Creatinine Ratio (6-26) Glucose (70-105) mg/dL Calculated Osmolality (280-300) Calcium (8.6-10.3) mg/dL Urine Color (Yellow) Urine Clarity (Clear) Urine pH (5.0-8.0) pH Units Ur Specific [place] (1.010-1.025) Urine Protein (Neg-Trace) mg/dL Urine Glucose (UA) (Normal) mg/dL Urine Ketones (Negative) mg/dL Urine Blood (Negative) Urine Nitrite (Negative) Urine Bilirubin (Negative) Urine Urobilinogen (Normal) mg/dL Ur Leukocyte Esterase (Negative) Urine Microscopic RBC (0-3) per hpf Urine Microscopic WBC (0-3) per hpf Ur Squamous Epith Cells (None-Few) per lpf Urine Bacteria (None-Few) per hpf Hyaline Casts (None-Few) per lpf Salicylates (15.0-30.0) mg/dL Urine Opiates Screen Negative (Scjaav=052) ng/mL Acetaminophen (10-20) mcg/mL Ur Barbiturates Screen Negative (Ialvkd=450) ng/mL Ur Phencyclidine Scrn Negative (Cutoff=25) ng/mL Ur Amphetamines Screen Negative (Xnldhw=1240) ng/mL U Benzodiazepines Scrn Negative (Gzrwee=655) ng/mL Urine Cocaine Screen Negative (Cutoff= 300) ng/mL U Marijuana (THC) Screen Negative (Cutoff = 50) ng/mL Ur Drug Screen Interp See Below Ethyl Alcohol (Less than 10) mg/dL Psychiatric Medical Clearance - Medical Clearance Checklist Medical History: No Social History Section defined Current Vitals: Last Vital Signs Temp 98.5 F 11/11/18 23:12 Pulse 125 11/11/18 23:12 Resp 16 11/11/18 23:12 BP 115/74 11/11/18 23:12 Pulse Ox 97 11/11/18 23:12 Psychiatric Lab Panel: Drug Levels and Toxicity 11/11/18 11/12/18 23:21 00:15 Urine Opiates Screen Negative Acetaminophen < 10 L Ur Barbiturates Screen Negative Ur Phencyclidine Scrn Negative Ur Amphetamines Screen Negative U Benzodiazepines Scrn Negative Urine Cocaine Screen Negative U Marijuana (THC) Screen Negative Ethyl Alcohol < 10 Abnormal Labs: Abnormal lab results WBC 11.3 K/mcL (4.3-11.1) H 11/11/18 23:21 RBC 5.98 M/mcL (4.19-5.50) H 11/11/18 23:21 MCV 81.9 fL (83.0-100.0) L 11/11/18 23:21 MCH 27.1 pg (28.0-33.3) L 11/11/18 23:21 Turbid (Clear) A 11/12/18 00:15 Salicylates < 2.5 mg/dL (15.0-30.0) L 11/11/18 23:21 Acetaminophen < 10 mcg/mL (10-20) L 11/11/18 23:21 Statement of Medical Clearance: I have evaluated the patient, reviewed diagnostic information, and certify that the patient's medical condition is sufficiently stable that transfer to the psychiatric unit does not pose a significant risk of deterioration.
[2018-11-11 23:51] LABS: Basophils # 0.1 K/mcL (0.0-0.2); Basophils % 0.4 %; Eosinophils # 0.2 K/mcL (0.0-0.6); Eosinophils % 1.9 %; Hemoglobin 16.2 g/dL (12.9-16.9); Immature Granulocytes % 0.4 % (0-4); Lymphocytes # 2.9 K/mcL (0.6-4.6); Lymphocytes % 25.4 %; Mean Corpuscular HGB Conc 33.1 g/dL (31.6-35.5); Mean Corpuscular Hemoglobin 27.1 pg (28.0-33.3); Mean Corpuscular Volume 81.9 fL (83.0-100.0); Mean Platelet Volume 10.2 fL (9.4-12.4); Monocytes # 0.8 K/mcL (0.0-1.3); Monocytes % 6.6 %; Neutrophils # 7.4 K/mcL (1.6-8.9); Platelet Count 256 K/mcL (140-400); Red Blood Count 5.98 M/mcL (4.19-5.50); Red Cell Distribution Width 12.3 % (11.5-14.5); Segmented Neutrophils % 65.3 %
[2018-11-12 00:11] LABS: Acetaminophen < 10 mcg/mL (10-20); BUN/Creatinine Ratio 12 (6-26); Blood Urea Nitrogen 11 mg/dL (6-20); Calcium 9.4 mg/dL (8.6-10.3); Carbon Dioxide 29 mEq/L (23-29); Chloride 104 mEq/L (98-107); Ethanol < 10 mg/dL (Less than 10); Glucose 98 mg/dL (70-105); Osmolality,Calculated 283 (280-300); Potassium 4.2 mEq/L (3.5-5.1); Salicylate < 2.5 mg/dL (15.0-30.0); Sodium 137 mEq/L (136-145); eGFR For Non-African Americans > 60 (> 60)
[2018-11-12 00:29] LABS: Bilirubin,Urine Negative (Negative); Blood,Urine Negative (Negative); Clarity,Urine Turbid (Clear); Color,Urine Yellow (Yellow); Glucose,Urine (UA) Normal (Normal); Ketones,Urine Negative (Negative); Leukocyte Esterase,Urine Negative (Negative); Nitrite,Urine Negative (Negative); Protein,Urine Negative (Neg-Trace); Specific Gravity,Urine 1.017 (1.010-1.025); Urobilinogen,Urine Normal (Normal)
[2018-11-12 00:30] LABS: Bacteria,Urine None Seen per hpf (None-Few); Hyaline Casts,Urine None Seen per lpf (None-Few); RBC,Urine 0-3 per hpf (0-3); Squamous Epithelial Cell,Urine Few per lpf (None-Few); WBC,Urine 0-3 per hpf (0-3)
[2018-11-12 00:39] LABS: Amphetamine Screen,Urine Negative ng/mL (Cutoff=1000); Barbiturate Screen,Urine Negative ng/mL (Cutoff=200); Benzodiazepines Screen,Urine Negative ng/mL (Cutoff=200); Cannabinoid Screen,Urine Negative ng/mL (Cutoff = 50); Cocaine Screen,Urine Negative ng/mL (Cutoff= 300); Opiate Screen,Urine Negative ng/mL (Cutoff=300); Phencyclidine Screen,Urine Negative ng/mL (Cutoff=25)
[2018-11-12] MEDS ORDERED: Nicotine 21 MG PATCH.TD24 TD SCH (01:00)
--- NOTE | 2018-11-12 05:50 | Emergency Department Note ---
Disposition Clinical Impression: Suicidal ideation Suicidal behavior Qualifiers: Attempted self-injury: with attempted self-injury Qualified Code(s): T14.91XA - Suicide attempt, initial encounter Disposition: Admitted As Inpatient Condition: Good General Adult HPI - General Chief complaint: ED Psychiatric Symptoms Stated complaint: 1A Eval Time Seen by Provider: 11/11/18 23:25 Source: patient Mode of arrival: ambulatory Limitations: no limitations Nursing Notes Reviewed: Yes Vital Signs Reviewed: Yes - History of Present Illness Pain Scale: 0 - Related Data Home Medications Medication Instructions Recorded Confirmed Benztropine [Cogentin] 1 mg PO HS 09/27/17 09/27/17 OLANZapine [Zyprexa] 15 mg PO HS 09/27/17 09/27/17 Previous Rx's Medication Instructions Recorded Divalproex (12 HR) [Depakote (12 1,000 mg PO HS #60 tablet. 09/07/17 HR)] Quetiapine Fumarate [Seroquel] 600 mg PO HS #60 tablet 09/07/17 Ondansetron ODT [Zofran ODT] 4 mg SL Q6HR PRN #7 tab.rapdis 01/11/18 Dicyclomine [Bentyl] 10 mg PO TID #12 capsule 09/30/18 Ondansetron ODT [Zofran ODT] 4 mg SL Q6HR #8 tab.rapdis 09/30/18 Allergies Allergy/AdvReac Type Severity Reaction Status Date / Time Bee Pollen Allergy Hives Verified 11/11/18 23:12 dairy Allergy Gastrointestinal Uncoded 11/11/18 23:12 Upset Constitutional: Denies: fever, chills Eyes: Denies: eye pain ENT ED: Denies: ear pain Cardiovascular: Denies: chest pain Respiratory: Denies: cough Gastrointestinal: Denies: abdominal pain Genitourinary: Denies: urgency Musculoskeletal: Denies: back pain Integumentary: Denies: rash Neurological: Denies: headache Psychiatric: Reports: depression, suicidal thoughts. Denies: anxiety Endocrine: Denies: fatigue Hematological/Lymphatic: Denies: easy bleeding Allergic/Immunologic: Denies: facial swelling Past Medical History - Past Medical History Medical history: Reports: seizures Surgical history: Reports: other Psychiatric history: Reports: depression, PTSD, prior suicide attempt, previous psychiatric hospitalization - Social History Smoking Status: Current every day smoker Smokeless Tobacco Status: Yes Alcohol use: Reports: none Drug use: Reports: none Physical Exam - General Limitations: no limitations General appearance: alert Course Vital Signs Temperature 98.5 F 11/11/18 23:12 Pulse Rate 125 11/11/18 23:12 Respiratory Rate 16 11/11/18 23:12 Blood Pressure 115/74 11/11/18 23:12 O2 Sat by Pulse Oximetry 97 11/11/18 23:12 Temperature 98.5 F 11/11/18 23:12 Pulse Rate 125 11/11/18 23:12 Respiratory Rate 16 11/11/18 23:12 Blood Pressure 115/74 11/11/18 23:12 O2 Sat by Pulse Oximetry 97 11/11/18 23:12 Oxygen Delivery Oxygen Delivery Room Air Medical Decision Making - Lab Data Lab results reviewed: Yes I reviewed the patient's lab results. Result diagrams: 11/11/18 23:21 11/11/18 23:21 Lab Results 11/11/18 11/11/18 11/12/18 Range/Units 23:21 23:21 00:15 WBC 11.3 H (4.3-11.1) K/mcL RBC 5.98 H (4.19-5.50) M/mcL Hgb 16.2 (12.9-16.9) g/dL Hct 49.0 (37.5-50.1) % MCV 81.9 L (83.0-100.0) fL MCH 27.1 L (28.0-33.3) pg MCHC 33.1 (31.6-35.5) g/dL RDW 12.3 (11.5-14.5) % Plt Count 256 (140-400) K/mcL MPV 10.2 (9.4-12.4) fL Immature Gran % 0.4 (0-4) % Seg Neutrophils % 65.3 % Lymphocytes % 25.4 % Monocytes % 6.6 % Eosinophils % 1.9 % Basophils % 0.4 % Neutrophils # 7.4 (1.6-8.9) K/mcL Lymphocytes # 2.9 (0.6-4.6) K/mcL Monocytes # 0.8 (0.0-1.3) K/mcL Eosinophils # 0.2 (0.0-0.6) K/mcL Basophils # 0.1 (0.0-0.2) K/mcL Sodium 137 (136-145) mEq/L Potassium 4.2 (3.5-5.1) mEq/L Chloride 104 (98-107) mEq/L Carbon Dioxide 29 (23-29) mEq/L BUN 11 (6-20) mg/dL Creatinine 0.93 (0.70-1.30) mg/dL Est GFR ( Amer) > 60 (> 60) Est GFR (Non-Af Amer) > 60 (> 60) BUN/Creatinine Ratio 12 (6-26) Glucose 98 (70-105) mg/dL Calculated Osmolality 283 (280-300) Calcium 9.4 (8.6-10.3) mg/dL Urine Color Yellow (Yellow) Urine Clarity Turbid A (Clear) Urine pH 8.0 (5.0-8.0) pH Units Ur Specific [place] 1.017 (1.010-1.025) Urine Protein Negative (Neg-Trace) mg/dL Urine Glucose (UA) Normal (Normal) mg/dL Urine Ketones Negative (Negative) mg/dL Urine Blood Negative (Negative) Urine Nitrite Negative (Negative) Urine Bilirubin Negative (Negative) Urine Urobilinogen Normal (Normal) mg/dL Ur Leukocyte Esterase Negative (Negative) Urine Microscopic RBC 0-3 (0-3) per hpf Urine Microscopic WBC 0-3 (0-3) per hpf Ur Squamous Epith Cells Few (None-Few) per lpf Urine Bacteria None Seen (None-Few) per hpf Hyaline Casts None Seen (None-Few) per lpf Salicylates < 2.5 L (15.0-30.0) mg/dL Urine Opiates Screen (Cbatdb=740) ng/mL Acetaminophen < 10 L (10-20) mcg/mL Ur Barbiturates Screen (Kqhsnf=731) ng/mL Ur Phencyclidine Scrn (Cutoff=25) ng/mL Ur Amphetamines Screen (Qmzmln=4508) ng/mL U Benzodiazepines Scrn (Fwaijx=546) ng/mL Urine Cocaine Screen (Cutoff= 300) ng/mL U Marijuana (THC) Screen (Cutoff = 50) ng/mL Ur Drug Screen Interp Ethyl Alcohol < 10 (Less than 10) mg/dL 11/12/18 Range/Units 00:15 WBC (4.3-11.1) K/mcL RBC (4.19-5.50) M/mcL Hgb (12.9-16.9) g/dL Hct (37.5-50.1) % MCV (83.0-100.0) fL MCH (28.0-33.3) pg MCHC (31.6-35.5) g/dL RDW (11.5-14.5) % Plt Count (140-400) K/mcL MPV (9.4-12.4) fL Immature Gran % (0-4) % Seg Neutrophils % % Lymphocytes % % Monocytes % % Eosinophils % % Basophils % % Neutrophils # (1.6-8.9) K/mcL Lymphocytes # (0.6-4.6) K/mcL Monocytes # (0.0-1.3) K/mcL Eosinophils # (0.0-0.6) K/mcL Basophils # (0.0-0.2) K/mcL Sodium (136-145) mEq/L Potassium (3.5-5.1) mEq/L Chloride (98-107) mEq/L Carbon Dioxide (23-29) mEq/L BUN (6-20) mg/dL Creatinine (0.70-1.30) mg/dL Est GFR ( Amer) (> 60) Est GFR (Non-Af Amer) (> 60) BUN/Creatinine Ratio (6-26) Glucose (70-105) mg/dL Calculated Osmolality (280-300) Calcium (8.6-10.3) mg/dL Urine Color (Yellow) Urine Clarity (Clear) Urine pH (5.0-8.0) pH Units Ur Specific [place] (1.010-1.025) Urine Protein (Neg-Trace) mg/dL Urine Glucose (UA) (Normal) mg/dL Urine Ketones (Negative) mg/dL Urine Blood (Negative) Urine Nitrite (Negative) Urine Bilirubin (Negative) Urine Urobilinogen (Normal) mg/dL Ur Leukocyte Esterase (Negative) Urine Microscopic RBC (0-3) per hpf Urine Microscopic WBC (0-3) per hpf Ur Squamous Epith Cells (None-Few) per lpf Urine Bacteria (None-Few) per hpf Hyaline Casts (None-Few) per lpf Salicylates (15.0-30.0) mg/dL Urine Opiates Screen Negative (Pyvvxx=361) ng/mL Acetaminophen (10-20) mcg/mL Ur Barbiturates Screen Negative (Chnbnw=422) ng/mL Ur Phencyclidine Scrn Negative (Cutoff=25) ng/mL Ur Amphetamines Screen Negative (Cryozt=6084) ng/mL U Benzodiazepines Scrn Negative (Jcfytq=566) ng/mL Urine Cocaine Screen Negative (Cutoff= 300) ng/mL U Marijuana (THC) Screen Negative (Cutoff = 50) ng/mL Ur Drug Screen Interp See Below Ethyl Alcohol (Less than 10) mg/dL Attestation Statement - Attestation Attestation: I, Corey Cintron MD, personally evaluated this patient and discussed their management with the midlevel provicer, [employer]. I reviewed the midlevel provider's note and agree with the documented findings, medical decision making, and plan of care. 22-year-old male presents to the emergency department with suicidal ideation. He has a history of depression and anxiety. Patient took an overdose of his medications. He took 5 of olanzapine and 5 Depakote. No homicidal ideation. On examination patient is a well-developed thin young male in no acute distress. He is alert and oriented 3. There is no cyanosis or diaphoresis. Breath sounds are clear and equal bilaterally. Heart regular rate and rhythm. Abdomen soft and nontender with normal bowel sounds. No gross focal neurological deficits. Labs reviewed. Patient medically cleared for psychiatric evaluation. [address] psychiatry department was consulted and evaluated patient in the emergency department and after evaluation patient is being admitted to the [address] psychiatric unit.
[2018-11-12] MEDS ORDERED: Ibuprofen 400 MG TABLET PO PRN (06:07)
[2018-11-12] MEDS ORDERED: *HR* LORazepam 1 MG TABLET PO PRN (06:07)
[2018-11-12] MEDS ORDERED: *HR* LORazepam 2 MG/ML VIAL IM PRN (06:07)
[2018-11-12] MEDS ORDERED: Haloperidol Lactate 5 MG/ML VIAL IM PRN (06:07)
[2018-11-12] MEDS ORDERED: MOM Conc 10 ML UD.LIQ PO PRN (06:07)
--- NOTE | 2018-11-12 11:14 | Psychiatry History & Physical ---
Date of Encounter: 11/12/18 Time of Encounter: 11:08 History of Present Illness Patient Stated Chief Complaint: suicidal ideation Medicare Admission Attestation: For traditional Medicare patients the provided hospital inpatient services are reasonable and necessary and in the case of services not specified as inpatient-only under 42 CFR 419.22 (n), that they are appropriately provided as inpatient services in accordance 42 CFR 412.3. For Critical Access Hospital the patient may reasonably be expected to be discharged or transferred to a hospital within 96 hours after admission to the Critical Access Hospital. Admitted From: Home Plans for Post Hospital Care: Home History of Present Illness: Mr. Sunshine is a 22 year old male who was admitted secondary to SI. Client has a history of multiple hospital admissions and for a time was bouncing in and out of inpatient units. However, client reports he has managed to stay out of the hospital for over a year. Came in last night after "family drama" at home. Client had been living with his mother and sister but states he is now kicked out of the house. Has plans to move in with his boyfriend but states in order to do this he had to get help for his mental state first. Client has been given multiple diagnoses over the years including Bipolar Disorder, ADHD, depression and anxiety. Previously linked with [facility] but stopped going to appointments at the end of 2018 when his prescribers took him off his "sleeping meds." Not currently linked with any mental health providers but has a PCP who prescribes Depakote. Client states the combination of Depakote and Seroquel is what has worked best for him in the past. Client reports a history of five prior suicide attempts and he had a sister who committed suicide. Client states he is physically healthy except for "pseudoseizures." Believes his last seizure was in September. NKDA. Denies AOD use and tox screen negative. Denies HI/AH/VH. Past Med Surg Social Fam HX - Past Medical History Medical history: seizures - Past Psychiatric History Psychiatric history: Reports: ADHD, bipolar, depression, prior suicide attempt, previous psychiatric hospitalization Family psychiatric history: Yes Family Psychiatric History Details: sister-suicided Family History of Suicide: Completed Family Suicide History Details: sister - Past Surgical History Surgical History: other - Social History Smoking Status: Current every day smoker Smokeless Tobacco Status: Yes Alcohol use: none Drug use: none Medications & Allergies Divalproex (12 HR) [Depakote (12 HR)] 1,000 mg PO HS #60 tablet. 09/07/17 [Rx] Benztropine [Cogentin] 1 mg PO HS 09/27/17 [History] OLANZapine [Zyprexa] 15 mg PO HS 09/27/17 [History] Ondansetron ODT [Zofran ODT] 4 mg SL Q6HR PRN #7 tab.rapdis 01/11/18 [Rx] Dicyclomine [Bentyl] 10 mg PO TID #12 capsule 09/30/18 [Rx] Ondansetron ODT [Zofran ODT] 4 mg SL Q6HR #8 tab.rapdis 09/30/18 [Rx] Allergy/AdvReac Type Severity Reaction Status Date / Time Bee Pollen Allergy Hives Verified 11/11/18 23:12 dairy Allergy Gastrointestinal Uncoded 11/11/18 23:12 Upset Review of Systems Constitutional: Denies: fever, chills, weakness, weight change Eyes: Denies: eye pain, vision change Ears, Nose, Throat: Denies: ear pain, throat pain, dental pain, hearing loss, congestion Cardiovascular: Denies: chest pain, palpitations, dyspnea on exertion Respiratory: Denies: cough, dyspnea, wheezes Gastrointestinal: Denies: abdominal pain, nausea, vomiting, diarrhea, constipation Genitourinary male: Denies: urgency, dysuria, frequency, genital lesions Musculoskeletal: Denies: joint swelling, joint pain Integumentary: Denies: rash, lesions, pruritus Neurological: Denies: headache, weakness, numbness, memory loss Endocrine: Denies: fatigue, heat or cold intolerance Hematologic/Lymphatic: Denies: easy bruising, lymphadenopathy Allergic/Immunologic: Denies: urticaria, itchy eyes Exam - HEENT Head exam IM: Present: atraumatic Eye exam IM: Present: EOMI, normal appearance, PERRL ENT exam IM: Present: normal exam - Neurological Neurological exam: Present: CN II-XII intact - Respiratory Respiratory exam IM: Present: CTAB - GI/Abdominal GI/Abdominal exam IM: Present: normal bowel sounds, soft. Absent: tenderness - Extremities Extremities exam IM: Present: full ROM - Skin Skin exam IM: Present: dry, warm - Constitutional Vitals: Temp Pulse Resp BP Pulse Ox 98.0 F 120 16 110/7 98 11/12/18 08:47 11/12/18 08:47 11/12/18 08:47 11/12/18 08:47 11/12/18 08:47 General appearance: age & developmentally appropriate, well-groomed, well- nourished - Musculoskeletal Gait: normal Station: relaxed Strength & Tone: normal for patient - Psychiatric Patient Orientation: Yes Person, Yes Time, Yes Place Level of alertness: Alert Behavior: calm, cooperative Psychomotor activity: Normal Eye Contact: Maintains Eye Contact Mood Description: Depressed Affect description: congruent with mood Speech Volume: Normal Speech pattern: normal rate, normal rhythm, normal tone, fluent, spontaneous Language & Vocabulary: consistent with education Thought Process: Linear Thought Content: Yes Suicidal ideation, No Homicidal ideation, No Overt delusions Perceptual Disturbances: No Auditory hallucinations, No Visual hallucinations Attention Span Ability: Capable of Focused Attention Memory Description: Grossly Intact Patient Reliability: Reliable Historian Fund of knowledge: Yes abstraction ability, Yes average, Yes aware of current events Intelligence Estimate: Average Judgment: Limited Insight: Partial Results - Drug Levels and Toxicology Drug Levels and Toxicology: Drug Levels and Toxicity 11/11/18 11/12/18 23:21 00:15 Urine Opiates Screen Negative Acetaminophen < 10 L Ur Barbiturates Screen Negative Ur Phencyclidine Scrn Negative Ur Amphetamines Screen Negative U Benzodiazepines Scrn Negative Urine Cocaine Screen Negative U Marijuana (THC) Screen Negative Ethyl Alcohol < 10 - Labs Labs: Laboratory Last Values WBC 11.3 K/mcL (4.3-11.1) H 11/11/18 23:21 RBC 5.98 M/mcL (4.19-5.50) H 11/11/18 23:21 Hgb 16.2 g/dL (12.9-16.9) 11/11/18 23:21 Hct 49.0 % (37.5-50.1) 11/11/18 23:21 MCV 81.9 fL (83.0-100.0) L 11/11/18 23:21 MCH 27.1 pg (28.0-33.3) L 11/11/18 23:21 MCHC 33.1 g/dL (31.6-35.5) 11/11/18 23:21 RDW 12.3 % (11.5-14.5) 11/11/18 23:21 Plt Count 256 K/mcL (140-400) 11/11/18 23:21 MPV 10.2 fL (9.4-12.4) 11/11/18 23:21 Immature Gran % 0.4 % (0-4) 11/11/18 23:21 Seg Neutrophils % 65.3 % 11/11/18 23:21 25.4 % 11/11/18 23:21 6.6 % 11/11/18 23:21 1.9 % 11/11/18 23:21 0.4 % 11/11/18 23:21 7.4 K/mcL (1.6-8.9) 11/11/18 23:21 2.9 K/mcL (0.6-4.6) 11/11/18 23:21 0.8 K/mcL (0.0-1.3) 11/11/18 23:21 0.2 K/mcL (0.0-0.6) 11/11/18 23:21 0.1 K/mcL (0.0-0.2) 11/11/18 23:21 Sodium 137 mEq/L (136-145) 11/11/18 23:21 Potassium 4.2 mEq/L (3.5-5.1) 11/11/18 23:21 Chloride 104 mEq/L (98-107) 11/11/18 23:21 Carbon Dioxide 29 mEq/L (23-29) 11/11/18 23:21 BUN 11 mg/dL (6-20) 11/11/18 23:21 0.93 mg/dL (0.70-1.30) 11/11/18 23:21 Est GFR ( Amer) > 60 (> 60) 11/11/18 23:21 Est GFR (Non-Af Amer) > 60 (> 60) 11/11/18 23:21 12 (6-26) 11/11/18 23:21 Glucose 98 mg/dL (70-105) 11/11/18 23:21 283 (280-300) 11/11/18 23:21 Calcium 9.4 mg/dL (8.6-10.3) 11/11/18 23:21 Yellow (Yellow) 11/12/18 00:15 Turbid (Clear) A 11/12/18 00:15 8.0 pH Units (5.0-8.0) 11/12/18 00:15 Ur Specific [place] 1.017 (1.010-1.025) 11/12/18 00:15 Negative mg/dL (Neg-Trace) 11/12/18 00:15 Normal mg/dL (Normal) 11/12/18 00:15 Negative mg/dL (Negative) 11/12/18 00:15 Negative (Negative) 11/12/18 00:15 Negative (Negative) 11/12/18 00:15 Negative (Negative) 11/12/18 00:15 Normal mg/dL (Normal) 11/12/18 00:15 Ur Leukocyte Esterase Negative (Negative) 11/12/18 00:15 0-3 per hpf (0-3) 11/12/18 00:15 0-3 per hpf (0-3) 05 00:15 Ur Squamous Epith Cells Few per lpf (None-Few) 11/12/18 00:15 None Seen per hpf (None-Few) 11/12/18 00:15 Hyaline Casts None Seen per lpf (None-Few) 11/12/18 00:15 Salicylates < 2.5 mg/dL (15.0-30.0) L 11/11/18 23:21 Negative ng/mL (Czysix=240) 11/12/18 00:15 Acetaminophen < 10 mcg/mL (10-20) L 11/11/18 23:21 Ur Barbiturates Screen Negative ng/mL (Blyxis=597) 11/12/18 00:15 Ur Phencyclidine Scrn Negative ng/mL (Cutoff=25) 11/12/18 00:15 Ur Amphetamines Screen Negative ng/mL (Mgrbvd=9066) 11/12/18 00:15 U Benzodiazepines Scrn Negative ng/mL (Gjsixu=060) 11/12/18 00:15 Negative ng/mL (Cutoff= 300) 11/12/18 00:15 U Marijuana (THC) Screen Negative ng/mL (Cutoff = 50) 11/12/18 00:15 Ur Drug Screen Interp See Below 11/12/18 00:15 Ethyl Alcohol < 10 mg/dL (Less than 10) 11/11/18 23:21 Assessment and Plan (1) Bipolar disorder Current visit: No Status: Acute Plan: Admit inpatient for safety and stabilization, Close observation, Suicide Precautions per unit protocol, Encourage participation in unit milieu, Group Therapy, Monitor sleep, Monitor appetite Risks, benefits, side effects, alternatives discussed w/pt: Yes Patient agreeable to treatment: Yes Plans for Post Hospital Care: Home Estimated Length of Stay (Days): 4 Qualifiers: Active/Remission status: currently active Current bipolar episode type: depressed Current episode severity: severe Psychotic features: without psychotic features Qualified Code(s): F31.4 - Bipolar disorder, current episode depressed, severe, without psychotic features
[2018-11-12] MEDS: Nicotine 21 MG PATCH.TD24 TD SCH (15:36)
[2018-11-12 16:45] LABS: Valproate 4 mcg/mL (50-100)
[2018-11-12] MEDS: hydrOXYzine pamoate 25 MG CAPSULE PO PRN (20:07)
[2018-11-12] MEDS: Divalproex (12 HR) 500 MG TABLET PO SCH (20:07)
[2018-11-12] MEDS: traZODone 50 MG TABLET PO PRN (20:07)
[2018-11-13] MEDS: Divalproex (12 HR) 500 MG TABLET PO SCH ×2 (08:26→20:59)
[2018-11-13] MEDS: Nicotine 21 MG PATCH.TD24 TD SCH (08:26)
--- NOTE | 2018-11-13 09:03 | Psychiatry Progress Note ---
Date of Encounter: 11/13/18 Time of Encounter: 09:01 Subjective Interval history: Patient's last 7-3/4 hours last night with when necessary medication. He continues to endorse some suicidal ideations. He says he has previously been on olanzapine in the past but prefers the Seroquel because it also helps him to sleep. Tolerating the Depakote. He will have a level drawn in 4 days. He reports a history of severe mood swings with irritability. Review of Systems Psychiatric: Reports: depression, suicidal ideation, irritability, mood swings Results - Vital Signs Vital Signs: Temp Pulse Resp BP Pulse Ox 98.2 F 93 18 111/69 96 11/12/18 20:24 11/12/18 20:24 11/12/18 20:24 11/12/18 20:24 11/12/18 20:24 - Drug Levels and Toxicology Drug Levels and Toxicology: Drug Levels and Toxicity 11/11/18 23:21 Acetaminophen < 10 L Ethyl Alcohol < 10 - Labs Labs: Laboratory Results - last 24 hr 11/11/18 23:21 Sodium 137 Potassium 4.2 Chloride 104 Carbon Dioxide 29 BUN 11 Creatinine 0.93 Est GFR ( Amer) > 60 Est GFR (Non-Af Amer) > 60 BUN/Creatinine Ratio 12 Glucose 98 Calculated Osmolality 283 Calcium 9.4 Salicylates < 2.5 L Acetaminophen < 10 L Valproic Acid 4 L Ethyl Alcohol < 10 Assessment and Plan (1) Bipolar disorder Current visit: No Status: Acute Plan: Continue hospitalization, Close observation, Suicide Precautions per unit protocol, Encourage participation in unit milieu, Group Therapy, Monitor sleep, Monitor appetite Additional Plan: Continue Depakote. Level in 4 days. Continue Seroquel. Encourage group attendance. Risks, benefits, side effects, alternatives discussed w/pt: Yes Patient agreeable to treatment: Yes Qualifiers: Active/Remission status: currently active Current bipolar episode type: depressed Current episode severity: severe Psychotic features: without psychotic features Qualified Code(s): F31.4 - Bipolar disorder, current episo de depressed, severe, without psychotic features Consult Discharge Plan - Plan Referrals: NONE,PCP [Primary Care Provider] - Psychiatry Exam - Constitutional Vitals: Temp Pulse Resp BP Pulse Ox 98.2 F 93 18 111/69 96 11/12/18 20:24 11/12/18 20:24 11/12/18 20:24 11/12/18 20:24 11/12/18 20:24 General appearance: disheveled - Musculoskeletal Gait: slow Station: stooped Strength & Tone: normal for patient - Psychiatric Patient Orientation: Yes Person, Yes Time, Yes Place Level of alertness: Alert Behavior: anxious Psychomotor activity: Slowed Eye Contact: Minimal Contact Mood Description: Depressed Patient description of mood: sad Affect description: dysphoric Speech Volume: Soft/Quiet Speech pattern: slowed Language & Vocabulary: consistent with education Thought Process: Intact Thought Content: Yes Suicidal ideation, No Homicidal ideation Perceptual Disturbances: No Auditory hallucinations, No Visual hallucinations Attention Span Ability: Capable of Focused Attention Memory Description: Grossly Intact Patient Reliability: Reliable Historian Fund of knowledge: Yes abstraction ability, Yes aware of current events Intelligence Estimate: Average Judgment: Limited Insight: Partial
[2018-11-13] MEDS: Mag Hydrox/Al Hydrox/Simeth 30 ML UDC PO PRN ×2 (11:20→19:08)
[2018-11-13] MEDS: hydrOXYzine pamoate 25 MG CAPSULE PO PRN ×2 (13:11→20:59)
[2018-11-13] MEDS: traZODone 50 MG TABLET PO PRN (21:00)
[2018-11-14] MEDS: Mag Hydrox/Al Hydrox/Simeth 30 ML UDC PO PRN (05:07)
--- NOTE | 2018-11-14 07:36 | Discharge Summary ---
Date of Encounter: 11/14/18 Time of Encounter: 07:33 Diagnosis - Discharge Diagnosis (1) Bipolar disorder Status: Acute Qualifiers: Active/Remission status: currently active Current bipolar episode type: depressed Current episode severity: severe Psychotic features: without psychotic features Qualified Code(s): F31.4 - Bipolar disorder, current episode depressed, severe, without psychotic features Medications - Discharge Medications Prescriptions: Divalproex (12 HR) [Depakote (12 HR)] 500 mg PO BID #30 tablet. hydrOXYzine pamoate [HydrOXYzine Pamoate] 25 mg PO TID PRN #45 capsule PRN Reason: Anxiety Clotrimazole/Betameth Dip CRM [Lotrisone CRM] 1 appl TP BID #1 tube Quetiapine Fumarate [Seroquel] 100 mg PO HS #15 tablet traZODone [TraZODone] 50 mg PO HS PRN #15 tablet PRN Reason: Insomnia Clotrimazole/Betameth Dip CRM [Lotrisone CRM] 1 appl TP BID #1 tube 11/14/18 [Rx] Divalproex (12 HR) [Depakote (12 HR)] 500 mg PO BID #30 tablet. 11/14/18 [Rx] Quetiapine Fumarate [Seroquel] 100 mg PO HS #15 tablet 11/14/18 [Rx] hydrOXYzine pamoate [HydrOXYzine Pamoate] 25 mg PO TID PRN #45 capsule 11/14/18 [Rx] traZODone [TraZODone] 50 mg PO HS PRN #15 tablet 11/14/18 [Rx] Allergy/AdvReac Type Severity Reaction Status Date / Time Bee Pollen Allergy Hives Verified 11/12/18 16:09 dairy Allergy Gastrointestinal Uncoded 11/12/18 16:09 Upset Results Procedures and tests throughout hospitalization: Completed Lab Orders Category Date Time Status Acetaminophen Stat Lab 11/11/18 23:21 Completed Basic Metabolic Panel Stat Lab 11/11/18 23:21 Completed Complete Blood Count [HEME] Stat Lab 11/11/18 23:21 Completed Drug Screen, Urine [UCHEM] Stat Lab 11/12/18 00:15 Completed Ethanol Stat Lab 11/11/18 23:21 Completed Salicylate Stat Lab 11/11/18 23:21 Completed Urinalysis reflex Microscopic [URIN] Stat Lab 11/12/18 00:15 Completed Valproate Stat Lab 11/11/18 23:21 Completed Provider Date of admission: 11/13/18 09:34 Primary care physician: PCP NONE Discharging clinician: Violette Graves Psychiatry Exam - Constitutional Vitals: Temp Pulse Resp BP Pulse Ox 98.7 F 77 16 120/82 96 11/13/18 21:00 11/13/18 21:00 11/13/18 21:00 11/13/18 21:00 11/13/18 21:00 General appearance: age & developmentally appropriate, well-groomed, well- nourished - Musculoskeletal Gait: normal Station: relaxed Strength & Tone: normal for patient - Psychiatric Patient Orientation: Yes Person, Yes Time, Yes Place Level of alertness: Alert Behavior: calm, cooperative Psychomotor activity: Normal Eye Contact: Maintains Eye Contact Mood Description: Euthymic/stable Patient description of mood: Good Affect description: congruent with mood, full range Speech Volume: Normal Speech pattern: normal rate, normal rhythm, normal tone, fluent, spontaneous Language & Vocabulary: consistent with education Thought Process: Linear, Goal Oriented Thought Content: No Suicidal ideation, No Homicidal ideation, No Overt delusions Perceptual Disturbances: No Auditory hallucinations, No Visual hallucinations Attention Span Ability: Capable of Focused Attention Memory Description: Grossly Intact Patient Reliability: Reliable Historian Fund of knowledge: Yes abstraction ability, Yes aware of current events Intelligence Estimate: Average Judgment: Good Insight: Full Hospital Course Hospital course: Mr. Sunshine is a 22 year old male who was admitted for mood lability and suicidal thoughts. He was started on Seroquel and Depakote for mood stabilization as well as when necessary Vistaril for anxiety and trazodone for sleep.Patient was educated of diagnosis and the risk-benefit side effects of this alternative treatment options and was monitored for responsiveness and side effects. Mood anxiety sleep and appetite interest improved as did future orientation. Self- harm thoughts subsided, thinking cleared, psychosis resolved, and mood stabilized. Patient was able to attend both individual and group therapy sessions as well as meet with the psychiatrist daily and urged to discuss any medication or treatment issues or other concerns. The patient was educated primarily by verbal means about their diagnosis and manifestations in their life. The option for treatment including group and individual therapy programming was offered to the patient in addition to the use of medications with all their potential risks, benefits, and side effects as well as the risks of not taking medication and non-adhereance were discussed with the patient at length. The patient was given the opportunity to ask questions and was noted to participate in the treatment in the planning process. The patient felt ready and eager to be discharged from the inpatient psychiatric unit to continue on with treatment as an outpatient. The patient agreed that is they were safe for this disposition. The patient was considered to be able to participate in informed consent and decision making with respect to medical, legal, and financial issues of the time of discharge. At the time of discharge the patient adamantly denied any concerns for lethality including suicidal or homicidal thoughts ideations or plans and was future oriented toward ongoing mental health care, medical follow-up and sobriety. Time spent discussing smoking cessation with patient: 3 to 10 minutes Does patient wish to continue nicotine replacement upon disc: No - Time Spent with Patient Total time spent providing and/or coordinating discharge services: 25 Less than 30 minutes Specific discharge activities: Interval history reviewed. Available labs reviewed . Psychotherapy provided. Patient had an opportunity to ask questions and address concerns. Patient was in agreement with the treatment plan. The risks benefits and side effects of medications were discussed with the patient, including alternatives and treatment. The patient was educated on the abstaining from any alcohol or illicit substances, following up with all scheduled appointments, and taking all medications as prescribed. The patient was educated on 90 meetings in 90 days and to find a sponsor. Assessment and Plan - Patient/Caregiver Discharge Instructions Activity: resume usual activities as tolerated, return to work Diet: regular diet - Follow up Plan Follow up with: NONE,PCP [Primary Care Provider] - Functional capacity at discharge: independent ambulation Overall status at discharge: Stable Disposition: Home, Self-Care Quality - Multiple Antipsychotics Patient discharged on 2 or more antipsychotic medications: No Procedures - Procedures Procedures: Medication Management, Crisis Stabilization, Supportive Therapy, Group Therapy, Psychoeducational Therapy
[2018-11-14] MEDS ORDERED: Clotrimazole/Betameth Dip CRM 45 APPL/45 GM TUBE TP SCH (09:00)
[2018-11-14] MEDS: Divalproex (12 HR) 500 MG TABLET PO SCH (09:05)
[2018-11-14] MEDS: Nicotine 21 MG PATCH.TD24 TD SCH (09:06)
[2018-11-14] MEDS: hydrOXYzine pamoate 25 MG CAPSULE PO PRN (09:08)
[2018-11-14 09:20] VITALS: BP 113/66
== END 2018-11-14 10:15 | disposition home or self-care (01) | DRG 753 ==
LOC: 1ANU 22:50 → EMEROOARM 22:50 → SUATTDRO 11-12 05:44 → 1ANU 11-12 06:00
PROVIDERS: ADMIT Psychiatry & Neurology Psychiatry; ATTEND Psychiatry & Neurology Psychiatry